=== PATIENT | male | born 1980 | race Caucasian/White ===

== ENCOUNTER 2017-02-01 16:49 | Outpatient (CLI) | payer BC ==
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
--- NOTE | 2017-02-01 21:14 | RAD ---
LUMBAR SPINE THREE VIEW 02/01/17 HISTORY: Low back pain x1 year. COMPARISON: Lumbar spine 03/21/14. FINDINGS: No acute fracture or malalignment of the lumbar spine. The visualized portions of the thoracic spine are unremarkable. There is chronic superior end plate irregularity at T11 and T12. Mild degenerative disc space height loss at L5-S1 posteriorly. IMPRESSION: Mild spondylosis of L5-S1. POS: [facility]
== END 2017-02-01 16:50 | disposition home or self-care (01) ==
LOC: MADRAD 16:49
PROVIDERS: ATTEND Family Medicine
DX: M54.5 Low back pain (principal); M47.897 Other spondylosis, lumbosacral region
CPT/HCPCS: 72072; 72100

== ENCOUNTER 2018-02-28 14:11 | Emergency (ER) | payer BC ==
--- NOTE | 2018-02-28 15:56 | RAD ---
AP VIEW CHEST: HISTORY: Cough. FINDINGS: AP view chest was obtained. The lungs are well aerated. No evidence of active intrathoracic disease is seen. No evidence of eff usions, pneumonia, or pneumothorax is seen. IMPRESSION: Unremarkable AP view chest. POS: [facility]
[2018-02-28] MEDS ORDERED: AMOXicillin 250 MG CAP ONE (16:09)
[2018-02-28] MEDS ORDERED: Phenergan/Codeine 10-6.25mg/5ml UDCUP ONE (16:09)
[2018-02-28] MEDS ORDERED: Oseltamivir 75 MG CAP ONE (16:57)
== END 2018-02-28 17:00 | disposition home or self-care (01) ==
LOC: MADERS 14:11
DX: J10.1 Influenza due to other identified influenza virus with other respiratory manifestations (principal); F17.210 Nicotine dependence, cigarettes, uncomplicated
CPT/HCPCS: 71045; 87081; 87430; 87804

== ENCOUNTER 2018-04-08 09:28 | Emergency (ER) | payer BC ==
[2018-04-08] MEDS ORDERED: Acetaminophen 325 MG TAB ONE (10:11)
[2018-04-08] MEDS ORDERED: Ketorolac Tromethamine 60 MG/2 ML VIAL ONE (10:11)
[2018-04-08] MEDS ORDERED: Diazepam 5 MG TAB ONE (10:11)
[2018-04-08] MEDS ORDERED: HYDROcodone/Acetaminophen 10/325 mg Tablet ONE (10:11)
== END 2018-04-08 10:35 | disposition home or self-care (01) ==
LOC: MADERS 09:28
DX: M54.41 Lumbago with sciatica, right side (principal); M46.90 Unspecified inflammatory spondylopathy, site unspecified; F17.210 Nicotine dependence, cigarettes, uncomplicated; Z79.899 Other long term (current) drug therapy
CPT/HCPCS: 96372; J1885